=== PATIENT | male | born 1980 | race Caucasian/White ===

== ENCOUNTER → 2016-03-30 | Day surgery (SDC) | payer OTHER ==
[~2016-03-30] VITALS: Ht 170.2 cm; Wt 95.3 kg
[~2016-03-30] MED LIST: ACETAMINOPHEN INTRAVENOUS 100 ML IV ONE; BUPIVACAINE 0.5% 50 ML VIAL. ONE; CEFAZOLIN 1GM IVPB FOR OMNI 50 ML IV PRN; DEXAMETHASONE SOD PHOS 20 MG/5 ML VIAL. ONE; DOCU-27 PO; EPINEPHRINE 30 MG/30 ML VIAL. ONE; FENTANYL PF 100 MCG/2 ML VIAL. IV PRN; FENTANYL PF 100 MCG/2 ML VIAL. ONE; HYDR-971 PO; HYDROMORPHONE 2 MG/ML VIAL. IV PRN; IV RINGERS,LACTATED 1000ML 1,000 ML IV SCH; LIDOCAINE 1% 1 ML SYRINGE. ID PRN; LIDOCAINE 1% 20 ML VIAL. ONE; LIDOCAINE 2% 100 MG/5 ML DISP.SYRIN. ONE; MORPHINE SULFATE 2 MG/ML DISP.SYRIN. IV PRN; ONDA4TAB10 SL; ONDANSETRON PF 4 MG/2 ML VIAL. IV PRN; ONDANSETRON PF 4 MG/2 ML VIAL. ONE; OXYC-323 PO; OXYCODONE/APAP 5/325 TABLET. PO PRN; PROCHLORPERAZINE 10 MG/2 ML VIAL. IV PRN; PROPOFOL 20 ML IV ONE; SEVOFLURANE 61 TO 120 MINUTES. IH ONE
--- NOTE | 2016-03-30 09:40 | DISCH ---
DISCHARGE INSTRUCTIONS Condition on Discharge Condition on Discharge: Stable Activity After Discharge Activity Instructions for Disc: Other, see below Bathing Instructions: Shower-keep dressing dry Weight Bearing Status after Di: Non weight bearing Diet after Discharge Diet after Discharge: Regular Wound Incision Care Wound/Incision Care: Ice to area for comfort, Keep wound/cast CDI, Change dressing Contacting the [facility] after DC Call your doctor for: Concerns you may have Follow-Up Follow up with: Erik in 2wks ROSANGELA LASSITER II, MD Mar 30, 2016 09:40
--- NOTE | 2016-03-30 09:45 | PDOC ---
BRIEF OPERATIVE NOTE Date: Mar 30, 2016 Pre-Op Diagnosis R knee ACL and MM tear Post-Op Diagnosis same Procedure Performed R ACL recon with MM repair Surgeon Erik [employer] Kathie Anesthesiologist [facility] Anesthesia Type: General Blood Loss 25mL Complications none ROSANGELA LASSITER II, MD Mar 30, 2016 09:44
[2016-03-30] MEDS: FENTANYL PF 100 MCG/2 ML VIAL. IV PRN ×2 (12:40→12:49)
--- NOTE | 2016-03-30 13:59 | OP ---
DATE OF SURGERY: 03/30/2016 SURGEON: Suresh Lassiter MD [employer] WORKER: Melissa Vázquez. ANESTHESIA: General. PREOPERATIVE DIAGNOSES: 1. Bucket handle tear, left knee medial meniscus. 2. Partial anterior cruciate ligament tear. POSTOPERATIVE DIAGNOSES: 1. Bucket handle tear, left knee medial meniscus. 2. Partial anterior cruciate ligament tear. PROCEDURE PERFORMED: 1. Arthroscopic assisted allograft ACL reconstruction. 2. Inside out open medial meniscus repair. COMPLICATIONS: None. TOURNIQUET TIME: As per OR paperwork. ESTIMATED BLOOD LOSS: 25 mL. COMPONENTS INSERTED: [employer]hew 15 mm in length Endobutton with a 9-mm Biomet TunneLoc. FINDINGS: 1. The patient had intact trochlear cartilage. 2. He had grade 2-3 changes essentially at his patella. No loose bodies in his medial and lateral gutter. 3. He had a reducible bucket handle medial meniscus tear at the red-white zone. 4. Intact PCL. 5. His ACL for the most part was completely tore. There was approximately 10% of the fibers still intact, but there was some laxity with that. 6. Intact lateral compartment, cartilage and meniscus. REASON FOR PROCEDURE: The patient is a very pleasant 35-year-old gentleman who had a delay in seeking care under his own accord secondary to financial constraints for a left knee injury and loss of motion. Clinical and radiographic evidence were consistent with above diagnoses. We had discussion of risks, benefits, and alternatives of the above procedure. DESCRIPTION OF PROCEDURE: The patient was greeted in the preoperative area by myself. The correct extremity was marked and verified. He was taken to the operative suite and antibiotics were started en route. Once in the OR, he had successful induction of general anesthesia. We then conducted an examination under anesthesia and felt the knee was stable to varus and valgus. His range of motion was 0-140. He had a positive Sheri with a soft endpoint, grade 2. He had a negative pivot shift. negative dial. We then proceeded to place a nonsterile tourniquet and a pad at his hip and a bar across the foot of the bed to maintain his knee at 90 degrees. We then proceeded to prep and drape of left lower extremity in our usual sterile fashion and conducted our standard preoperative timeout. After this, I palpated, marked surface anatomy for a possible meniscal repair, incision as well as my portals. I then made my standard anterolateral arthroscopic portal and introduced the blunt arthroscopic trocar into the suprapatellar pouch followed by the camera. I conducted my diagnostic arthroscopy with the above-noted findings. I then withdrew the arthroscopic instrumentation and exsanguinated the extremity with an Esmarch and insufflated the tourniquet to 250 mmHg. I then incised skin over my planned medial meniscus repair incision. I dissected down through subcutaneous tissue and cauterized bleeders with electrocautery. I identified the MCL and marked posterior to this down to the level of identifying the gastroc tendon. I used my index finger to free this up off the capsule and placed my popliteal retractor. I then brought the knee out into extension and introduced the camera into the joint. I then used the zone specific cannulas to shuttle the meniscal repair sutures through in a mattress type configuration. I used 3. This gave good meniscal stability when I pulled on them. After shuttling all these sutures, I then withdrew the arthroscopic instrumentation, flexed the knee and tied the sutures down snugly. I then reintroduced the camera through an anterolateral portal in the knee and inspected my repair. It was stable to probing. After this, I directed my attention to taking down the ACL remnant, which I did in a slight [id number] position to help drop the posterior horn of lateral meniscus away from the ACL femoral site. I debrided the ACL at the femoral and tibial side. I made so I could get over the top as well. I used a curette and shaver to accomplish this. I then used my tip guide and identified the anterior horn of the lateral meniscus and reference this and then gently placed the aiming arm of the tip guide against the skin and then backed it off to make my skin incision, dissected down bluntly through subcutaneous tissue. Then I fully seated my aiming arm for my tip guide and autopsy assistant advanced the pin into the knee. I checked my position. I felt that it was a little too lateral and so I withdrew this pin and aimed another one more medial. I was more happy with this wound as well as the trajectory and position overall. I then drilled for a size 8. It should be noted that while I was taken down the ACL remnant, my autopsy assistant was using a #2 Ultrabraid in a running whipstitch fashion through both ends of the posterior tibialis tendon allograft. It was then passed through the Endobutton and secured in the Endobutton hole under tension, wrapped in a moist lap. We had sized the graft. After reaming the appropriate sized to the tibia, I cleaned out the tunnel, placed the plug and then directed my attention to introducing the over the top guide into the knee joint. One autopsy assistant held the knee in hyperflexion. I placed my over the top guide and another autopsy assistant advanced the Beath pin. I then withdrew the over the top guide, inspected my position and was happy with it. I then used my Endobutton reamer through both cortices. I then withdrew the Endobutton reamer and a guide pin and made my tunnel. This was 34. I then reintroduced the Beath pin and then my femoral reamer and I reamed to approximately 30 mm. I then withdrew the reamer and the Beath pin and then cleaned up the tunnel and inspected from an anteromedial portal. I had a good rim bone at the lateral cortex and no wall perforation. After this, I withdrew Beath pin back through the anteromedial portal through the femoral tunnel and then used this to shuttle #2 Ultrabraid out laterally through the distal thigh. I then pulled the looped end through the tibial tunnel with a loop grasper. I then used this to shuttle my Endobutton pulling stitches. I then pulled my graft into position confirming this with good toggle with alternating tension on the two different strands of the Endobutton stitches. Maximal backward traction by myself yielded no withdrawal of the graft. I then held maximal tension again and cycled the knee repeatedly. I then brought the knee up to about 20 degrees of flexion and autopsy assistant held retractors around the tibial tunnel. I then placed my nitinol guidewire for my TunneLoc in between the graft strands and then seated my TunneLoc device. I then used tension or pulled tension while I secured the suture limbs. I then set tension on the device and cycled the knee again. This gave me one more click of tension. After this, I then impacted the TunneLoc device into position. I then released the suture limbs. I tested his Sheri at this point. He had a negative Sheri with a solid endpoint. I then reintroduced the camera and inspected my graft position and was happy with it. No impingement. I then cut my suture ends for my Endobutton and cut the tails of my graft for my tibial tunnel as well. I then introduced the shaver and camera in suprapatellar pouch and performed repeated aspiration maneuvers to make sure I got rid of all loose bony debris. I then withdrew all excess arthroscopic fluid and instrumentation. I then irrigated out the medial incision. After this, we proceeded to close the deep layer medially with simple interrupted #1 Vicryl. Inverted interrupted 2-0 was used for subcutaneous tissue for medial and tibial incision. Running 4-0 Monocryl for the skin. A 2-0 nylon in simple interrupted fashion for the portals. Prior to accomplishing wound closure, all counts were reported correct x 2. The patient then had his upper extremity cleansed and dried and placed into a hinged knee brace set from 0-90 degrees. Postop plan is for him to be nonweightbearing for 6 weeks. We will get him started in PT. We will see him back in 2 weeks, sooner should problems arise. SURESH LASSITER MD DR: CESAR/darinel JOB#: [id number] / [id number]
[2016-03-30 14:11] VITALS: BP 150/77
== END ==
LOC: SURG 08:39
PROVIDERS: ATTEND Orthopaedic Surgery Sports Medicine
DX: S83.212A Bucket-handle tear of medial meniscus, current injury, left knee, initial encounter (principal); S83.512A Sprain of anterior cruciate ligament of left knee, initial encounter; X58.XXXA Exposure to other specified factors, initial encounter; Y93.9 Activity, unspecified; Y92.9 Unspecified place or not applicable; Y99.9 Unspecified external cause status
CPT/HCPCS: 29882; 29888; 97161; C1713; C1762; C1782; J0131; J0171; J0690; J1100; J2270; J2405; J2704; J3010; J7120; J1170; J3490